=== PATIENT | female | born 1990 | race Asian ===

== ENCOUNTER 2023-10-11 08:00 | Outpatient (CLI) | payer OTHER ==
[2023-10-11 16:50] LABS: BILIRUBIN,URINE NEGATIVE (NEGATIVE); GLUCOSE, URINE (UA) NEGATIVE (NEGATIVE); KETONES,URINE (UA) NEGATIVE (NEGATIVE); LEUKOCYTE ESTERASE, URINE NEGATIVE (NEGATIVE); NITRITE,URINE NEGATIVE (NEGATIVE); OCCULT BLOOD,URINE NEGATIVE (NEGATIVE); PROTEIN,URINE NEGATIVE (NEGATIVE); UROBILINOGEN,URINE 0.2 (NORMAL) E.U./dL (NORMAL)
[2023-10-11 17:01] LABS: CLARITY,URINE CLOUDY (CLEAR)
[2023-10-11 17:24] LABS: AMORPHOUS SEDIMENT,UR Moderate /LPF; BACTERIA,URINE Moderate /HPF (None Seen); RBC,URINE None Seen /HPF (0-5); SQUAMOUS EPITHELIAL CELL,UR RARE Squamous (<= Few); WBC,URINE 0-3 /HPF (0-5)
== END 2023-10-11 23:59 | disposition home or self-care (01) ==
LOC: LAB.WC 08:00
PROVIDERS: ATTEND Obstetrics & Gynecology
DX: Z34.90 Encounter for supervision of normal pregnancy, unspecified, unspecified trimester (principal)
CPT/HCPCS: 81001; 87086

== ENCOUNTER 2023-11-07 13:45 | Outpatient (CLI) | payer OTHER ==
[2023-11-07 14:31] LABS: BASOPHILS % (AUTO) 0.3 %; EOSINOPHILS # (AUTO) 0.1 10^3/uL (0.0-0.7); EOSINOPHILS % (AUTO) 0.6 %; HCT - HEMATOCRIT 39.1 % (37.0-47.0); HGB - HEMOGLOBIN 12.6 g/dL (12.0-16.0); LYMPHOCYTES # (AUTO) 2.4 10^3/uL (1.5-3.5); LYMPHOCYTES % (AUTO) 25.6 %; MEAN CORPUSCULAR HEMOGLOBIN 25.7 pg (27.0-31.0); MEAN CORPUSCULAR HGB CONC 32.2 g/dL (32.0-36.0); MEAN CORPUSCULAR VOLUME 79.6 fL (81.0-99.0); MEAN PLATELET VOLUME 9.3 fL (7.9-10.8); MONOCYTES # (AUTO) 0.5 10^3/uL (0.0-1.0); MONOCYTES % (AUTO) 5.2 %; NEUTROPHILS # (AUTO) 6.3 10^3/uL (1.5-6.6); NEUTROPHILS % (AUTO) 68.1 %; PLT - PLATELET COUNT 244 10^3/uL (130-450); RED BLOOD COUNT 4.91 10^6/uL (4.20-5.40); RED CELL DISTRIBUTION WIDTH 13.1 % (12.0-15.0); WHITE BLOOD COUNT 9.3 x10^3/uL (4.8-10.8)
--- NOTE | 2023-11-07 17:05 | Ultrasound Report ---
PROCEDURE: OB 1st Trimester INDICATIONS: POSITIVE PRENANCY TEST OUTSIDE/PRIOR DATING DATA: Last menstrual period (LMP): 08/04/2023. LMP-based estimated date of delivery (ROBERTA): 05/06/2024. First dating scan (date and location): 11/07/2023. Estimated date of delivery (ROBERTA) from first dating scan: 05/28/2024. TECHNIQUE: Real-time scanning was performed of the fetus and maternal pelvic organs, with image documentation. COMPARISON: None. FINDINGS: Intrauterine gestational sac present. Embryo: Pierpoint-rump length is present measuring 4.1 cm corresponding to 11 weeks 0 days. Heart rate: 1 76 bpm bpm. Other: No perigestational fluid collection. Measurement variability in dating: +/- 4 weeks by LMP, +/- 7 days by mean sac diameter (use before 6 weeks gestation if crown-rump length not able to be measured), +/- 5 days by crown-rump length (6-12 weeks gestation). Maternal organs: Ovaries appear within normal limits. IMPRESSION: Single live intrauterine with crown-rump length measuring 4.1 cm corresponding to 11 weeks 0 days. Reviewed by: Jo Boyd MD on 11/07/2023 5:03 PM PDT Approved by: Jo Boyd MD on 11/07/2023 5:03 PM PDT Station ID: [id number]
[2023-11-08 06:10] LABS: HBsAG SCREEN Negative (Negative)
[2023-11-08 08:11] LABS: HIV SCREEN 4TH GENERATION Non Reactive (Non Reactive); RPR Non Reactive (Non Reactive)
[2023-11-08 12:09] LABS: VARICELLA-ZOSTER AB IGG 3460 index (Immune >165)
== END 2023-11-07 13:46 | disposition home or self-care (01) ==
LOC: DI 13:45
PROVIDERS: ATTEND Obstetrics & Gynecology
DX: Z34.91 Encounter for supervision of normal pregnancy, unspecified, first trimester (principal)
CPT/HCPCS: 36415; 85025; 86592; 86762; 86787; 86803; 86850; 86900; 86901; 87340; 87389

== ENCOUNTER 2023-11-10 08:00 | Outpatient (CLI) | payer OTHER ==
[2023-11-10 21:09] LABS: BACTERIAL VAGINOSIS DNA POSITIVE (NEGATIVE); CANDIDA GLABRATA DNA NEGATIVE (NEGATIVE); CANDIDA GROUP DNA NEGATIVE (NEGATIVE); CANDIDA KRUSEI DNA NEGATIVE (NEGATIVE); TRICHOMONAS VAGINALIS DNA NEGATIVE (NEGATIVE)
[2023-11-10 23:46] LABS: CHLAMYDIA TRACHOMATIS DNA NEGATIVE (NEGATIVE); NEISSERIA GONORRHOEAE DNA NEGATIVE (NEGATIVE)
== END 2023-11-10 23:59 | disposition home or self-care (01) ==
LOC: LAB.WC 08:00
PROVIDERS: ATTEND Nurse Practitioner
DX: N89.8 Other specified noninflammatory disorders of vagina (principal); Z11.3 Encounter for screening for infections with a predominantly sexual mode of transmission
CPT/HCPCS: 81514; 87491; 87591; 87661

== ENCOUNTER 2024-01-05 15:11 | Outpatient (CLI) | payer OTHER ==
[2024-01-05 16:21] LABS: CREATININE,URINE 32.1 mg/dL; PROTEIN/CREATININE RATIO,URINE 0.2 (<=0.2)
[2024-01-05 16:29] LABS: ALBUMIN 4.1 g/dL (3.2-5.5); ALBUMIN/GLOBULIN RATIO 1.5 (1.0-2.2); BILIRUBIN,TOTAL 0.2 mg/dL (0.2-1.0); CALCIUM 9.7 mg/dL (8.5-10.3); CREATININE 0.5 mg/dL (0.6-1.3); POTASSIUM 3.7 mmol/L (3.5-4.5); TOTAL PROTEIN 6.9 g/dL (6.4-8.9)
[2024-01-05 21:27] LABS: ESTIMATED AVERAGE GLUCOSE 108 mg/dL (70-100); HEMOGLOBIN A1c% 5.4 % (4.27-6.07)
== END 2024-01-05 15:12 | disposition home or self-care (01) ==
LOC: LAB 15:11
PROVIDERS: ATTEND Obstetrics & Gynecology
DX: Z87.59 Personal history of other complications of pregnancy, childbirth and the puerperium (principal); Z86.32 Personal history of gestational diabetes
CPT/HCPCS: 36415; 80053; 82570; 83036; 84156

== ENCOUNTER 2024-01-16 15:50 | Outpatient (CLI) | payer OTHER ==
--- NOTE | 2024-01-16 20:26 | Ultrasound Report ---
PROCEDURE: OB Anatomy Scan INDICATIONS: SUPERVISION OF NORMAL OUTSIDE/PRIOR DATING DATA: Last menstrual period (LMP): 08/04/2023. LMP-based estimated date of delivery (ROBERTA): 05/10/2024. First dating scan (date and location): 11/07/2023. Estimated date of delivery (ROBERTA) from first dating scan: 05/28/2024. The below data below was generated using the working ROBERTA of 05/28/2024 TECHNIQUE: Real-time scanning was performed of the fetus, with image documentation and biometric measurements. Endovaginal scanning: Not performed. COMPARISON: 11/07/2023 FINDINGS: General: A single living intrauterine gestation is present. Presentation: Variable Placenta: Placental position is posterior, without previa. Amniotic fluid index: 16.2 cm, 67% for gestational age. heart rate: 162 beats per minute. Maternal cervical canal: Closed and measures 4 cm long; normal length is 2.5 cm or more. biometrics: Biparietal diameter: 4.67 cm, 20 weeks, 1 day, 16.1% Head circumference: 17.63 cm, 20 weeks, 3 days, 16.1% Abdominal circumference: 16 24 cm, 21 weeks, 6 days, 70.8%. Femur length: 3.35 cm, 20 weeks, 3 days, 24.3% Estimated gestational age from initial scan: 21 weeks, 0 day Composite gestational age from present scan: 20 weeks, 5 days Estimated weight and percentile: 399.5 g, 50.4% Measurement variability in biometric dating: +/- 10 days from 12-20 weeks gestation, +/- 2 weeks from 20-30 weeks gestation, +/- 3 weeks at 30 weeks gestation or later. Anatomic survey: Neuro: Ventricles are normal at less than 10 mm. Cisterna magna is normal at 3-11 mm. Cerebellum i s normal in size and morphology. Nuchal skin fold: Normal at less than 6 mm between 14 and 20 weeks gestational age. Face: Nose and lips, facial profile are normal. Spine: Limited in evaluation due to position. Heart: 4-chambered heart is present. Ventricular outflow tract evaluation is limited due to po sition. Diaphragm: Diaphragm is intact. Stomach: Left-sided stomach is present. Kidneys: No hydronephrosis. Normal is less than 5 mm in 2nd trimester, less than 7 mm in 3rd trimester. Cord: 3 vessel cord has orthotopic insertion. Bladder: Normal in size. Extremities: All 4 extremities are visualized. IMPRESSION: 1. Single live intrauterine gestation with fetus in variable presentation. heart rate is 162 bp m. Normal MELISSA at 16.2 cm which is at 67%. Estimated weight is at 50.4%. 2. spine and ventricular outflow tracts are not well seen due to position. Rest of the fe berto anatomic survey is normal. Reviewed by: Jae Stockton MD on 01/16/2024 8:25 PM PDT Approved by: Jae Stockton MD on 01/16/2024 8:25 PM PDT Station ID: [id number]
== END 2024-01-16 15:51 | disposition home or self-care (01) ==
LOC: DI 15:50
PROVIDERS: ATTEND Nurse Practitioner
DX: Z34.92 Encounter for supervision of normal pregnancy, unspecified, second trimester (principal)

== ENCOUNTER 2024-02-12 15:57 | Outpatient (CLI) | payer OTHER ==
--- NOTE | 2024-02-13 23:11 | Ultrasound Report ---
PROCEDURE: OB Follow up INDICATIONS: SUPERVISION OF OUTSIDE/PRIOR DATING DATA: Last menstrual period (LMP): 08/04/2023. LMP-based estimated date of delivery (ROBERTA): 05/10/2024. First dating scan (date and location): 11/07/2023. Estimated date of delivery (ROBERTA) from first dating scan: 05/28/2024. The below data below was generated using the sonographic ROBERTA of 05/28/2024 TECHNIQUE: Real-time scanning was performed of the fetus, with image documentation and biometric measurements. Endovaginal scanning: Not performed. COMPARISON: 01/16/2024 FINDINGS: General: A single living intrauterine gestation is present. Presentation: Vertex Placenta: Placental position is posterior, without previa. Amniotic fluid index: 15.4 cm, within normal limits for gestational age. Largest pocket is 4.7 cm heart rate: 155 beats per minute. Maternal cervical canal: Closed and 4.1 cm long; normal length is 2.5 cm or more. Other: The spine is seen. The skin covering spine is intact. Cardiac ventricular outflow tracts and 4 chambered heart are seen and appear normal. IMPRESSION: Single living intrauterine . Completion of anatomic survey with visualization of a normal spine and cardiac ventricular outf low tracts. Closed cervix and normal amniotic fluid volume. Reviewed by: Wen Motley MD on 02/13/2024 11:10 PM PDT Approved by: Wen Motley MD on 02/13/2024 11:10 PM PDT Station ID: [id number]
== END 2024-02-12 15:58 | disposition home or self-care (01) ==
LOC: DI 15:57
PROVIDERS: ATTEND Nurse Practitioner
DX: Z34.90 Encounter for supervision of normal pregnancy, unspecified, unspecified trimester (principal)

== ENCOUNTER 2024-03-01 13:24 | Outpatient (CLI) | payer OTHER ==
[2024-03-01 14:39] LABS: HCT - HEMATOCRIT 38.3 % (37.0-47.0); MEAN CORPUSCULAR HEMOGLOBIN 25.3 pg (27.0-31.0); MEAN CORPUSCULAR HGB CONC 31.3 g/dL (32.0-36.0); MEAN CORPUSCULAR VOLUME 80.8 fL (81.0-99.0); MEAN PLATELET VOLUME 9.6 fL (7.9-10.8); RED BLOOD COUNT 4.74 10^6/uL (4.20-5.40); RED CELL DISTRIBUTION WIDTH 14.4 % (12.0-15.0); WHITE BLOOD COUNT 12.9 x10^3/uL (4.8-10.8)
[2024-03-02 07:10] LABS: RPR Non Reactive (Non Reactive)
== END 2024-03-01 13:25 | disposition home or self-care (01) ==
LOC: LAB 13:24
PROVIDERS: ATTEND Nurse Practitioner
DX: O09.892 Supervision of other high risk pregnancies, second trimester (principal)
CPT/HCPCS: 36415; 82950; 85027; 86592

== ENCOUNTER 2024-03-17 09:58 | Outpatient (CLI) | payer OTHER ==
--- NOTE | 2024-03-18 06:22 | Ultrasound Report ---
PROCEDURE: OB Follow up INDICATIONS: GESTATIONAL DIABETES OUTSIDE/PRIOR DATING DATA: Last menstrual period (LMP): 08/04/2023. LMP-based estimated date of delivery (ROBERTA): 05/10/2024. First dating scan (date and location): 11/07/2023. Estimated date of delivery (ROBERTA) from first dating scan: 05/28/2024. TECHNIQUE: Real-time scanning was performed of the fetus, with image documentation and biometric measurements. Endovaginal scanning: Not performed. COMPARISON: OB pelvic ultrasounds 11/07/2023, 01/16/2024, 02/12/2024 FINDINGS: General: A single living intrauterine gestation is present. Presentation: Vertex Placenta: Placental position is posterior, without previa. Amniotic fluid index: 12.7 cm, within normal limits for gestational age. heart rate: 153 beats per minute. Maternal cervical canal: 3.4 cm long; normal length is 2.5 cm or more. biometrics: Biparietal diameter: 7.2 cm, 15.5th percentile Head circumference: 26.7 cm, 6.7th percentile Abdominal circumference: 25.6 cm, 46.2th percentile Femur length: 5.5 cm, 16.0th percentile Estimated gestational age from initial scan: 29 weeks and 5 days Composite gestational age from present scan: 29 weeks and 1 day Estimated weight and percentile: 1381.3 g; 25.7th percentile Measurement variability in biometric dating: +/- 10 days from 12-20 weeks gestation, +/- 2 weeks from 20-30 weeks gestation, +/- 3 weeks at 30 weeks gestation or more. Other: Ovaries not identified on today's exam. Mild right renal pelviectasis at 0.4 cm. IMPRESSION: 1.Single live intrauterine gestation with a heart rate of 153 bpm and estimated due date of 2.Estimated weight at 25.7th percentile. 3.Head circumference at 6.7th percentile. Attention on follow-up recommended. 4.Mild right renal pelviectasis. Attention on follow-up recommended. Reviewed by: Edwin Terrazas MD on 03/18/2024 6:21 AM PDT Approved by: Edwin Terrazas MD on 03/18/2024 6:21 AM PDT Station ID: [id number]
== END 2024-03-17 09:59 | disposition home or self-care (01) ==
LOC: DI 09:58
PROVIDERS: ATTEND Nurse Practitioner
DX: O24.410 Gestational diabetes mellitus in pregnancy, diet controlled (principal); O35.8XX0 Maternal care for other (suspected) fetal abnormality and damage, not applicable or unspecified; Z3A.29 29 weeks gestation of pregnancy

== ENCOUNTER 2024-05-14 17:02 | Inpatient (IN) ==
[2024-05-14] MEDS ORDERED: NIFEdipine 10 MG CAPSULE PO PRN (18:08)
[2024-05-14] MEDS ORDERED: fentaNYL 100 MCG/2 ML VIAL IVP PRN (18:08)
[2024-05-14] MEDS ORDERED: hydrALAZINE INJ 20 MG/ML VIAL IVP PRN ×2 (18:08)
[2024-05-14] MEDS ORDERED: METHYLERGONOVINE 0.2 MG/ML VIAL IM PRN (18:08)
[2024-05-14] MEDS ORDERED: TRANEXAMIC ACID IN NACL 1,000 MG/100 ML BAG IV PRN (18:08)
[2024-05-14] MEDS ORDERED: miSOPROStoL 200 MCG TABLET BC PRN (18:08)
[2024-05-14] MEDS ORDERED: OXYTOCIN 10 UNIT/ML VIAL IM PRN (18:08)
[2024-05-14] MEDS ORDERED: LABETALOL 20 MG/4 ML SYRINGE IVP PRN ×3 (18:08)
[2024-05-14] MEDS ORDERED: SODIUM CHLORIDE FLUSH 0.9% 10 ML SYRINGE IVP PRN (18:08)
[2024-05-14] MEDS ORDERED: miSOPROStoL 200 MCG TABLET PR PRN (18:08)
[2024-05-14] MEDS ORDERED: LACTATED RINGERS 1,000 ML IV PRN (18:08)
[2024-05-14 18:24] LABS: BASOPHILS % (AUTO) 0.3 %; EOSINOPHILS # (AUTO) 0.1 10^3/uL (0.0-0.7); EOSINOPHILS % (AUTO) 0.7 %; HGB - HEMOGLOBIN 13.6 g/dL (12.0-16.0); LYMPHOCYTES # (AUTO) 2.3 10^3/uL (1.5-3.5); LYMPHOCYTES % (AUTO) 24.8 %; MEAN CORPUSCULAR HEMOGLOBIN 25.2 pg (27.0-31.0); MEAN CORPUSCULAR HGB CONC 31.6 g/dL (32.0-36.0); MEAN CORPUSCULAR VOLUME 79.8 fL (81.0-99.0); MEAN PLATELET VOLUME 10.9 fL (7.9-10.8); MONOCYTES # (AUTO) 0.5 10^3/uL (0.0-1.0); NEUTROPHILS # (AUTO) 6.4 10^3/uL (1.5-6.6); NEUTROPHILS % (AUTO) 68.7 %; PLT - PLATELET COUNT 182 10^3/uL (130-450); RED BLOOD COUNT 5.39 10^6/uL (4.20-5.40); RED CELL DISTRIBUTION WIDTH 14.7 % (12.0-15.0); WHITE BLOOD COUNT 9.4 x10^3/uL (4.8-10.8)
--- NOTE | 2024-05-14 18:34 | HISTORY & PHYSICAL EXAMINATION ---
Admit History : 2 Parity: 1 Care: positive [facility] Risk/History: positive Gestational diabetes Smoking Status: Never smoker Mother's Labs Mother's Blood Type: positive B Mother's RH: positive Positive GBS: positive Group B Step Negative Rubella Status: positive Immune Other Maternal History Other Maternal History: HPI Diagnosis/Indication for NST: Gestational Diabetes NST Procedure NST Procedure: NST Procedure Start Time 14:56 Stop Time 15:19 Results and Plan Findings/Impression: Direct admit for induction, no NST performed EFM: 150s, moderate variability, positive 15x15 accelerations, no decelerations [place]: occasional contractions Cat 1 Plan: Direct admit Meds/Allgy Home Medications Ambulatory Orders Medication Instructions Recorded Confirmed aspirin 81 mg chewable tablet 81 mg PO QDAY 04/09/24 05/03/24 hydrocortisone acetate 1 % topical 1 applic topical BID PRN 04/09/24 05/03/24 cream metformin 500 mg tablet 1,000 mg PO BID 04/09/24 05/03/24 blood sugar diagnostic (True 04/12/24 05/03/24 Metrix Glucose Test Strip) lancets (Lancets, Super Thin) 04/12/24 05/03/24 vitamin#30 30 mg iron-10 cap PO 04/12/24 05/03/24 mg iron-folic acid 1 mg-omg3 capsule Allergies Allergies Allergy/AdvReac Type Severity Reaction Status Date / Time No Known Drug Allergies Allergy Verified 05/03/24 14:45 [facility] Medical History Medical History (Updated 05/08/24 @ 14:31 by Naomy Dickson MD) History of gestational diabetes (11/10/23) Family History Family History (Updated 04/20/24 @ 22:03 by Naomy Dickson MD) Daughter Premature baby Social History Social History (Updated 04/20/24 @ 22:00 by Naomy Dickson MD) Smoking Status: Never smoker Do you dip or chew tobacco?: No Living arrangement: At home Marital Status: Living Condition: With family Support Person: Yes Relationship: Spouse Living Situation Details: Spouse Kavon is in [employer]. Both are from [facility]. Daughter Naye, 03/2021 ETOH Use: None Substance Use: denies use Occupation: home mom Service: No Review of Systems Status of ROS: 10 or more systems reviewed and unremarkable except as noted in history and below Physical Abdominal Exam Contraction Intensity: positive Mild Uterine Resting Tone: positive Soft Monitoring Heart Rate Baseline: 150 Strip Review: positive Category I Presentation Presentation: positive Vertex (Placenta posterior, EFW 2600g) Vaginal Exam Membranes: positive Membranes intact Dilation (in cm): 6 Effacement (%): 50 Station: positive -3 Cervical Position: positive Posterior Plan for Labor Plan For Labor I expect patient to be DC'd or transferred within 96 hours.: Yes Plan for Labor: 33yo at 38w admitted for scheduled IOL for IUGR 9% and GDMA2 (treated with metformin) - Admit - CBC, T&S, CMP - 6cm on admission, start Pitocin then AROM - Anticipate Conclusion/Plan Lab Results Lab results reviewed: Yes Diagnostic Imaging Results Diagnostic Imaging Results: positive Final report reviewed Diagnostic Imaging Results Comments: PEL US 05/10/24 PROCEDURE: US OB Limited INDICATIONS: INTRAUTERINE GROWTH RESTRICTION OUTSIDE/PRIOR DATING DATA: The below data below was generated using the ultrasound ROBERTA of 05/28/2024 TECHNIQUE: Real-time scanning was performed of the fetus, with image documentation. Spectral and Doppler interrogation of the umbilical cord was performed Endovaginal scanning: Not performed COMPARISON: None. FINDINGS: A single living intrauterine gestation is present. Presentation: Vertex Placenta: Placental position is posterior, without previa. Amniotic fluid index: 11.5 cm, 22nd percentile for gestational age. heart rate: 124 beats per minutes. Maternal cervical canal not evaluated Estimated gestational age from initial scan: 33 weeks 1 day. Normal umbilical artery waveforms. SD ratio ranges 3.2 through 2.6. IMPRESSION: Single living intrauterine at 33 weeks 1 day, ROBERTA of 05/28/2024. Normal umbilical artery waveforms. SD ratio ranges 3.2-2.6. MELISSA of 11.5 cm.
[2024-05-14 18:40] LABS: ALBUMIN 3.9 g/dL (3.2-5.5); ALBUMIN/GLOBULIN RATIO 1.2 (1.0-2.2); BILIRUBIN,TOTAL 0.3 mg/dL (0.2-1.0); CALCIUM 9.9 mg/dL (8.5-10.3); CREATININE 0.7 mg/dL (0.6-1.3); POTASSIUM 4.3 mmol/L (3.5-4.5); TOTAL PROTEIN 7.1 g/dL (6.4-8.9)
[2024-05-14] MEDS: LACTATED RINGERS 1,000 ML IV SCH (18:40)
[2024-05-14] MEDS: OXYTOCIN/SODIUM CHLORIDE 500 ML IV SCH (18:40)
[2024-05-14] MEDS ORDERED: SODIUM CHLORIDE FLUSH 0.9% 10 ML SYRINGE IVP SCH (19:00)
[2024-05-14] MEDS: metFORMIN 500 MG TABLET PO SCH (21:25)
[2024-05-14] MEDS: OXYTOCIN/SODIUM CHLORIDE 500 ML IV PRN (22:12)
[2024-05-14] MEDS: lidocaine 1% 20 ML MDV ID PRN (22:14)
[2024-05-14] MEDS ORDERED: SIMETHICONE CHEW 80 MG TABLET PO PRN (22:27)
[2024-05-14] MEDS ORDERED: OXYTOCIN/SODIUM CHLORIDE 500 ML IV PRN (22:27)
[2024-05-14] MEDS ORDERED: NALOXONE 0.4 MG/ML VIAL IVP PRN (22:27)
--- NOTE | 2024-05-14 22:39 | DELIVERY NOTE ---
Delivery Note Labor Labor: positive Induced by oxytocin Infant Delivery Method Infant Delivery Method: positive Spontaneous vaginal delivery Presentation Presentation: positive Vertex and JOSEPH - left occiput anterior Nuchal Cord Nuchal Cord: positive None Amniotic Fluid Description Amniotic Fluid Description: positive Clear Laceration Laceration: positive 2nd degree Suture Suture Type: positive Vicryl Suture Size: positive 3-0 Delivery Outcome Delivery Outcome: positive Livebirth [place]: positive Placed in direct skin contact with mother, Bulb syringe, Stimulated, Warmed and [place] used [place] sex: positive Female Cord Cord: positive 3 vessels Placenta Placenta: positive Intact and Spontaneous Estimated Blood Loss Estimated Blood Loss (in cc): 100 Post Delivery Events Post Delivery Events: positive No post delivery events Delivery Comments (Free Text/Narrative) Delivery Comments (Free Text/Narrative): AROM, then progressed to 10/100/0. Unmedicated and feeling urge to push. Pushing started with good efforts. Head delivered JOSEPH. Shoulders and body followed with ease. Female placed on mother's abdomen. Delayed cord clamping. Placenta delivered spontaneously and intact, 3vc. Vagina and perineum inspected. Small second degree perineal laceration repaired with 3-0 Vicryl in usual fashion. Hemostasis. Family doing well, , bonding. QBL 100cc.
[2024-05-14] MEDS: ACETAMINOPHEN 500 MG TABLET PO SCH (22:48)
[2024-05-14] MEDS: IBUPROFEN 800 MG TABLET PO SCH (22:48)
[2024-05-15] MEDS: DOCUSATE SODIUM 100 MG CAPSULE PO SCH (09:36)
--- NOTE | 2024-05-15 13:50 | PHARMACY PROGRESS NOTE ---
Best Possible Medication History Admit Date and Time: 05/14/24 [id number] Home Medications Medication Instructions Recorded Confirmed Type aspirin 81 mg chewable tablet 81 mg PO QDAY 04/09/24 05/15/24 History hydrocortisone acetate 1 % topical 1 applic topical BID PRN itching 04/09/24 05/15/24 History cream metformin 500 mg tablet 1,000 mg PO BID 04/09/24 05/15/24 History blood sugar diagnostic (True 04/12/24 05/03/24 History Metrix Glucose Test Strip) lancets (Lancets, Super Thin) 04/12/24 05/03/24 History vitamin#30 30 mg iron-10 1 cap PO DAILY 04/12/24 05/15/24 History mg iron-folic acid 1 mg-omg3 capsule Processed by: Pharmacy Medications reviewed in ED?: No Medication History completed: Yes Patient Interview: Pt unable to participate (pt with new baby and leaving soon, confirmed medications with patient's nurse who has reviewed meds with patient already and matches insurance fill hx) Secondary Source(s): Insurance records [facility] Statement: As the person ultimately responsible for medication therapy, providers are able to order a medication from an existing home medication list in [facility] via the "Reconcile Routine" prior to Confirmation of that medication by behaviour support teacher. Such practice is discouraged except when the physician, in their clinical judgment, deems that a medical need exists for a medication without regard to previous use.
--- NOTE | 2024-05-15 14:00 | PROVIDER PROGRESS NOTE ---
Subjective Prog Note Date Prog Note Date: 05/15/24 Prog Note Time: 13:58 Subjective Pt reports feeling: Improved Subjective: Comfortable, some cramping with relief from acetaminophen/ibuprofen. Appropriate lochia. Ambulating. Voiding. Tolerating regular diet. well. Mood is good. Current Medications Current Medications Current Medications: Current Medications Generic Name Dose Route Start Last Admin Trade Name Freq PRN Reason Stop Dose Admin Acetaminophen 1,000 mg 05/14/24 23:00 05/15/24 06:43 Acetaminophen 500 Mg Tablet PO 1,000 mg Q8HR GRECIA Administration Docusate Sodium 100 mg 05/15/24 09:00 05/15/24 09:36 Docusate Sodium 100 Mg Capsule PO 100 mg BID GRECIA Administration Hydralazine HCl 5 - 10 mg 05/14/24 18:08 Hydralazine Inj 20 Mg/Ml Vial IVP Q20M PRN SBP> or= 160 OR DBP> or= 110 Protocol Hydralazine HCl 10 mg 05/14/24 18:08 Hydralazine Inj 20 Mg/Ml Vial IVP .ONCE PRN SBP> or= 160 OR DBP> or= 110 Protocol Oxytocin/Sodium Chloride 500 mls @ 999 mls/hr 05/14/24 18:08 05/14/24 23:05 Pitocin/Sodium Chloride IV Infused PRN PRN Titration POST- HEMORR PREVENTION Protocol 999 MILLIUNIT/MIN Ibuprofen 800 mg 05/14/24 23:00 05/15/24 06:43 Ibuprofen 800 Mg Tablet PO 800 mg Q8H GRECIA Administration Labetalol HCl 20 - 80 mg 05/14/24 18:08 Labetalol 20 Mg/4 Ml Syringe IVP Q10M PRN SBP> or= 160 OR DBP> or= 110 Protocol Labetalol HCl 20 mg 05/14/24 18:08 Labetalol 20 Mg/4 Ml Syringe IVP .ONCE PRN SBP> or= 160 OR DBP> or= 110 Protocol Labetalol HCl 20 - 40 mg 05/14/24 18:08 Labetalol 20 Mg/4 Ml Syringe IVP Q10M PRN SBP> or= 160 OR DBP> or= 110 Protocol Methylergonovine Maleate 0.2 mg 05/14/24 18:08 Methylergonovine 0.2 Mg/Ml Vial IM .ONCE PRN Hemorrhage Misoprostol 600 mcg 05/14/24 18:08 Misoprostol 200 Mcg Tablet BC .ONCE PRN Hemorrhage Naloxone HCl 0.4 mg 05/14/24 22:27 Naloxone 0.4 Mg/Ml Vial IVP .ONCE PRN Opioid Overdose Nifedipine 10 - 20 mg 05/14/24 18:08 Nifedipine 10 Mg Capsule PO Q20M PRN SBP> or= 160 OR DBP> or= 110 Protocol Oxytocin 10 unit 05/14/24 18:08 Oxytocin 10 Unit/Ml Vial IM .ONCE PRN Step One if no IV access. Simethicone 80 mg 05/14/24 22:27 Simethicone Chew 80 Mg Tablet PO TID PRN Gas Sodium Chloride 10 ml 05/14/24 18:08 Sodium Chloride Flush 0.9% 10 Ml Syringe IVP PRN PRN NEEDED PER PROVIDER ORDERS Objective Vital Signs/Intake & Output Reviewed Vital Signs: Yes Vital Signs: Vital Signs x48h Temp Pulse Resp BP Pulse Ox 05/15/24 12:10 36.7 C 84 15 118/82 99 05/15/24 09:15 36.7 C 05/15/24 08:09 36.8 C 84 14 120/79 Intake & Output: Intake & Output 05/13/24 05/14/24 05/15/24 05/16/24 05:59 05:59 05:59 05:59 Intake Total 1650 / 1650 600 / 600 Balance 1650 / 1650 600 / 600 Weight (kg) 73.028 kg Objective General Appearance: positive No acute distress Eyes Bilateral: positive EOMI Respiratory: positive No respiratory distress Abdomen: positive Other (Fundus firm) Skin: positive Color nml Extremities: positive Non-tender Neurologic/Psychiatric: positive Oriented x3 Lab Results 05/14/24 17:57 05/14/24 17:57 Other Labs: Lab Results x24hrs 05/14/24 05/14/24 Range/Units 18:33 17:57 WBC 9.4 (4.8-10.8) x10^3/uL RBC 5.39 (4.20-5.40) 10^6/uL Hgb 13.6 (12.0-16.0) g/dL Hct 43.0 (37.0-47.0) % MCV 79.8 L (81.0-99.0) fL MCH 25.2 L (27.0-31.0) pg MCHC 31.6 L (32.0-36.0) g/dL RDW 14.7 (12.0-15.0) % Plt Count 182 (130-450) 10^3/uL MPV 10.9 H (7.9-10.8) fL Neut # (Auto) 6.4 (1.5-6.6) 10^3/uL Lymph # (Auto) 2.3 (1.5-3.5) 10^3/uL Boundary # (Auto) 0.5 (0.0-1.0) 10^3/uL Eos # (Auto) 0.1 (0.0-0.7) 10^3/uL Baso # (Auto) 0.0 (0.0-0.1) 10^3/uL Absolute Nucleated RBC 0.00 x10^3/uL Nucleated RBC % 0.0 /100WBC Sodium 137 (135-145) mmol/L Potassium 4.3 (3.5-4.5) mmol/L Chloride 107 (101-111) mmol/L Carbon Dioxide 19 L (21-32) mmol/L Anion Gap 11.0 (6-13) BUN 14 (6-20) mg/dL Creatinine 0.7 (0.6-1.3) mg/dL Estimated GFR (MDRD) 98 (>89) Glucose 95 (74-104) mg/dL Calcium 9.9 (8.5-10.3) mg/dL Total Bilirubin 0.3 (0.2-1.0) mg/dL AST 20 (10-42) IU/L ALT 20 (10-60) IU/L Alkaline Phosphatase 209 H (42-121) IU/L Total Protein 7.1 (6.4-8.9) g/dL Albumin 3.9 (3.2-5.5) g/dL Globulin 3.2 (2.1-4.2) g/dL Albumin/Globulin Ratio 1.2 (1.0-2.2) Blood Type B POSITIVE Antibody Screen NEGATIVE Assessment/Plan Problem List (1) care following vaginal delivery: Impression: 33yo s/p 11/12, PPD#1 doing well - Mom and baby well - GDM: Metformin discontinued. Follow up - Hx of preeclampsia: now normotensive, never needed antihypertensives - Anticipate discharge tomorrow, delivery last night
--- NOTE | 2024-05-16 07:49 | Discharge Summary ---
Discharge Summary Admit Date: 05/14/24 Discharge Date: 05/16/24 Discharging Provider: Wolf Allen DIAGNOSES Admission Diagnoses: A2GDM Inuduction of labor 38 weeks gestation HPI History of Present Illness: Subjective Patient reports she is doing well. Lochia appropriate. Denies heavy bleeding. Ambulating. Pelvic and abdominal pain well-controlled. Tolerating oral intake. Diet: Regular. Voiding without difficulty. Passing flatus. Denies BM. Patient is bonding with baby in room Breast feeding going well. Denies feeling lightheaded, dizzy or excessively fatigued. Objective General: Alert, oriented, no apparent distress. Cardiovascular: Regular rate. Regular rhythm. Lungs: No increased work of breathing. Abdomen: Uterus firm. Below umbilicus. No guarding or rebound. Extremities: No pain on palpation. No cords palpated. Distal pulses intact. HOSPITAL COURSE Hospital Course: Patient was admitted for induction of labor at 38 weeks gestation secondary to A2 gestational diabetes. On presentation she was 6 cm and received oxytocin and amniotomy for induction and progressed quickly and had an uncomplicated vaginal delivery. course was unremarkable and she was discharged on day 2. weight: 2950 g Apgars 8/9 ALLERGIES Allergies Allergy/AdvReac Type Severity Reaction Status Date / Time No Known Drug Allergies Allergy Verified 05/03/24 14:45 MEDICATIONS Ambulatory Orders Medication Instructions Recorded Confirmed hydrocortisone acetate 1 % topical 1 applic topical BID PRN itching 04/09/24 05/15/24 cream vitamin#30 30 mg iron-10 1 cap PO DAILY 04/12/24 05/15/24 mg iron-folic acid 1 mg-omg3 capsule acetaminophen 500 mg tablet 1,000 mg (2 x 500 mg) PO Q8HR PRN 05/16/24 moderate pain (scale score 5-6) #90 tabs docusate sodium 100 mg capsule 100 mg PO BID 30 days #60 caps 05/16/24 ibuprofen 800 mg tablet 800 mg PO Q8H PRN moderate pain 05/16/24 (scale score 5-6) #60 tabs LABS 05/14/24 17:57 05/14/24 17:57 FOLLOW UP Follow Up: With [facility] women's care in 1 to 2 weeks TIME SPENT Time Spent in Discharge (Minutes): 20 Discharge Plan Discharge Patient Disposition: Home, Self Care Condition: Stable Prescriptions: New acetaminophen 500 mg Tablet 1,000 mg PO Q8HR PRN (Reason: moderate pain (scale score 5-6)) Qty: 90 0RF docusate sodium 100 mg Capsule 100 mg PO BID 30 Days Qty: 60 0RF ibuprofen 800 mg Tablet 800 mg PO Q8H PRN (Reason: moderate pain (scale score 5-6)) Qty: 60 0RF Continued hydrocortisone acetate 1 % cream 1 applic topical BID PRN (Reason: itching) PNV #[id number] 30 mg iron-10 mg iron-1 mg capsule 1 cap PO DAILY Discontinued metformin 500 mg tablet 1,000 mg PO BID aspirin 81 mg tablet,chewable 81 mg PO QDAY (DME) True Metrix Glucose Test Strip Strip See Rx Instructions .Route Rx Instructions: As directed (DME) lancets [Lancets, Super Thin] Misc See Rx Instructions .Route Rx Instructions: As directed Activity Restrictions: Additional Comments Diet: Regular Print Language: Dutch Patient Instructions: Vaginal After, Depression Follow-up Care: Wolf Allen MD [Provider Admit Priv/Credential] -
[2024-05-16 08:10] VITALS: O2SAT 98
--- NOTE | 2024-05-16 11:36 | Labor Flowsheet ---
Labor Flowsheet Datetime Report Generated by CPN: 05/16/2024 11:36 Datetime: 05/16/2024 07:46 VITAL SIGNS NBP Sys/Fany/Mean (mmHg): 135 : 88 : 99 Pulse: 84 Datetime: 05/15/2024 07:45 Stage of : Datetime: 05/15/2024 00:00 PAIN Pain Scale: 1 Pain Presence: Intermittent Pain Type: Cramping Pain Location: Abdomen; Perineum Pain Relief Measures: Comfort Measures Datetime: 05/14/2024 22:00 UTERINE ACTIVITY Monitor Mode: External Frequency (min): 3-4 Quality: Strong Duration (sec): 60-100 Pattern: Normal: <= 5 Contractions in 10 Minutes Resting Tone (Palpate): Relaxed Pitocin Checklist: At Least 1 Acceleration of 15 bpm x 15 Seconds in 30 Minutes or Adequate Variabi lity; No More than 1 Late Deceleration Occurred in Past 30 Minutes; No More than 2 Variable Decelerat ions > 60 Seconds in Duration and decreasing >60 bpm in 30 minutes; No More than 5 Uterine Contractio ns in 10 Minutes for any 20 Minute Interval; Uterus Palpates Soft between Contractions ASSESSMENT A Monitor Mode: External US Variability: Moderate 6-25 bpm Accelerations: 15X15 Decelerations: Early Category: Category I Datetime: 05/14/2024 21:50 FHR Baseline Rate : 136 Datetime: 05/14/2024 21:43 VAGINAL EXAM Dilatation (cm): 10.0 Effacement (%): 100 Station: 1 STAGE 2 Pushing: Urge to Push Pushing Position: Pushing with Contractions; Pushing Lithotomy Datetime: 05/14/2024 21:27 Exam by: dr [email or web address] Datetime: 05/14/2024 21:26 Comments: md at bedside for delivery Datetime: 05/14/2024 21:25 Stage 2 Comments: pt reports urge to push, md notified Datetime: 05/14/2024 21:10 Monitor Interventions for FHR: Ultrasound Adjusted Datetime: 05/14/2024 20:46 LaborFlag: Labor Datetime: 05/14/2024 20:45 PATIENT CARE Patient Position/Activity: Semi-Fowlers; High Fowlers Datetime: 05/14/2024 20:44 COMMUNICATION Communication: RN at Bedside; Provider at Bedside Communication Comments: Received orders from provider to go down to 6mu on pit since AROM. Datetime: 05/14/2024 20:42 Monitor Interventions for UA: Mims Adjusted Datetime: 05/14/2024 20:34 Membrane Status: Ruptured Membranes Ruptured Date/Time: 05/14/2024 20:34 Membranes Rupture Method: Artificial Amniotic Fluid Color: Clear Amniotic Fluid Amount: Large Amniotic Fluid Odor: Normal Vaginal Bleeding: None Cervix, Consistency: Soft Cervix, Position: Midposition Datetime: 05/14/2024 20:30 FHR Baseline Changes: No Baseline Change Datetime: 05/14/2024 20:23 Respirations: 18 Temperature (C): 36.9 Temperature Route: Oral Datetime: 05/14/2024 17:30 Contraction Comments: no UCs at this time
== END 2024-05-16 11:35 | disposition home or self-care (01) | DRG 807 ==
LOC: WFO 17:02 → FBP 17:04
PROVIDERS: ADMIT Obstetrics & Gynecology; ATTEND Obstetrics & Gynecology
DX: Z37.0 Single live birth; O70.1 Second degree perineal laceration during delivery; Z3A.38 38 weeks gestation of pregnancy; O24.425 Gestational diabetes mellitus in childbirth, controlled by oral hypoglycemic drugs